=== PATIENT | female | born 1960 | race Caucasian/White ===

== ENCOUNTER 2017-01-12 08:04 | Emergency (ER) | payer MEDICARE, MEDICAID ==
[~2017-01-12] VITALS: Ht 160 cm; Wt 57.0 kg
[2017-01-12 08:09] VITALS: BP 104/76
== END 2017-01-12 09:16 | disposition left against medical advice (07) ==
LOC: ER 08:49
DX: Z53.21 Procedure and treatment not carried out due to patient leaving prior to being seen by health care provider (principal)